=== PATIENT | female | born 1970 | race Caucasian/White ===

== ENCOUNTER 2018-10-11 15:01 | Outpatient (CLI) | payer SELFPAY ==
--- NOTE | 2018-10-11 17:11 | Vascular Lab Report ---
PROCEDURE: VL VENOUS DUPLEX LE BILAT TECHNIQUE: Duplex Doppler sonography of the BILATERAL legs. Callahan scale imaging with and without comp ression, spectral waveform analysis with and without augmentation, and color flow Doppler were employ ed. HISTORY: Bilateral lower extremity EDEMA, SWELLING, DVT COMPARISONS: None FINDINGS: RIGHT LOWER EXTREMITY: Deep Venous Thrombus: None Superficial Venous Thrombus: There is echogenic occlusive thrombus in the right proximal calf varix Venous valvular incompetence: None Soft tissue abnormality: None LEFT LOWER EXTREMITY: Deep Venous Thrombus: None Superficial Venous Thrombus: There is echogenic occlusive thrombus in the mid left thigh varix Venous valvular incompetence: None Soft tissue abnormality: None IMPRESSION: No evidence of deep venous thrombosis bilaterally. However, there are moderate occlusive thrombi with in varices involving the proximal right calf and in the mid left thigh. This document is electronically signed by Anette Beaulieu MD., October 11 2018 05:08:51 PM ET
== END 2018-10-11 15:02 | disposition home or self-care (01) ==
LOC: VAS 15:01
PROVIDERS: ATTEND Internal Medicine Cardiovascular Disease
DX: I82.4Z1 Acute embolism and thrombosis of unspecified deep veins of right distal lower extremity (principal); I82.412 Acute embolism and thrombosis of left femoral vein; I87.2 Venous insufficiency (chronic) (peripheral)
CPT/HCPCS: 93970

== ENCOUNTER 2020-11-13 19:00 | Observation (INO) | payer SELFPAY ==
[2020-11-13] MEDS ORDERED: SODIUM CHLORIDE 0.9% 500 ML 500 ML IV ONE (19:31)
[2020-11-13 20:09] LABS: Alanine Aminotransferase 11 units/L (7-56); Albumin 3.4 g/dL (3.9-5); Blood Urea Nitrogen 8 mg/dL (7-17); Calcium 8.6 mg/dL (8.4-10.2); Hemolysis Index 8
[2020-11-13 20:11] LABS: BUN/Creatinine Ratio 16
[2020-11-13 20:15] LABS: Basophils % (Auto) 0.2 % (0.0-1.8); Eosinophils # (Auto) 0.1 K/mm3 (0.0-0.4); Eosinophils % (Auto) 1.1 % (0.0-4.3); Hematocrit 34.3 % (30.3-42.9); Hemoglobin 11.8 gm/dl (10.1-14.3); Lymphocytes # (Auto) 0.8 K/mm3 (1.2-5.4); Lymphocytes % (Auto) 9.4 % (13.4-35.0); Mean Corpuscular HGB Conc 34 % (30-34); Mean Corpuscular Volume 84 fl (79-97); Monocytes # (Auto) 1.1 K/mm3 (0.0-0.8); Monocytes % (Auto) 12.9 % (0.0-7.3); Platelet Count 336 K/mm3 (140-440); Red Blood Count 4.07 M/mm3 (3.65-5.03); Red Cell Distribution Width 13.5 % (13.2-15.2)
[2020-11-13 20:23] LABS: INR 0.94 (0.87-1.13)
--- NOTE | 2020-11-13 20:26 | XRay Report ---
CHEST 2 VIEWS, 11/13/2020 7:04 PM INDICATION: Fever. COMPARISON: None FINDINGS: Support devices: None. Heart: The cardiac silhouette is normal in size. Lungs/pleura: The lungs are clear of focal airspace disease or significant pleural effusion. Additional findings: There are mild bony degenerative changes of the thoracic spine. IMPRESSION: 1. No evidence of acute cardiopulmonary process. Signer Name: Aruna Dhillon MD Signed: 11/13/2020 8:21 PM Workstation Name: [id number]
[2020-11-13 22:05] LABS: Bacteria,Urine 4+ /HPF (Negative); Bilirubin,Urine NEG (Negative); Blood,Urine SM (Negative); Calcium Oxalate Crystals,Urine 3+; Color,Urine Yellow (Yellow); Hyaline Casts,Urine 1 /LPF; Mucus,Urine 2+ /HPF; Protein,Urine <15 mg/dL mg/dL (Negative); Urobilinogen,Urine < 2.0 mg/dL (<2.0)
[2020-11-13 23:58] LABS: HCG Qualitative,Urine Negative (Negative)
[2020-11-14] MEDS ORDERED: ACETAMINOPHEN 500 MG TAB PO ONE (00:12)
[2020-11-14] MEDS ORDERED: metroNIDAZOLE 500 MG TAB PO ONE (00:12)
[2020-11-14] MEDS ORDERED: LACTATED RINGERS 2,000 ML IV ONE (00:12)
--- NOTE | 2020-11-14 00:18 | Emergency Department Report ---
ED General Adult HPI - General Chief complaint: GI Bleed Stated complaint: ABD PAINS PUI?: No Time Seen by Provider: 11/13/20 23:49 Source: patient, family, RN notes reviewed Mode of arrival: Ambulatory Limitations: Language Barrier - History of Present Illness Initial comments: Patient accompanied by daughter. Patient request that daughter translate. This provider is also conversant in Ethiopian. The patient is a 50-year-old female. She believes she has a history of inflammatory bowel disease. She believes that she had a colonoscopy and endoscopy in [place] 2 years ago. She is currently maintained on Pentasa, which she received from [place]. She presents to the ER with a few weeks of abdominal cramping, bright red blood per rectum. Denies headache, neck pain, chest pain, vomiting. Denies urinary symptoms. Denies loss of taste and smell. Has not received Covid vaccination. States she does not take blood thinning medications. Abdominal cramping is diffuse. Does not have exacerbating or relieving factors. -: Gradual, days(s) Location: abdomen Consistency: constant Improves with: none Worsens with: none - Related Data Previous Rx's Medication Instructions Recorded Last Taken Type Ciprofloxacin HCl 500 mg PO BID #14 tablet 11/14/20 Unknown Rx metroNIDAZOLE [Flagyl] 500 mg PO Q8HR #21 tablet 11/14/20 Unknown Rx predniSONE 40 mg PO . DIR #70 tab 11/14/20 Unknown Rx Allergies Allergy/AdvReac Type Severity Reaction Status Date / Time No Known Allergies Allergy Verified 11/13/20 23:50 ED Review of Systems ROS: Stated complaint: ABD PAINS Other details as noted in HPI Constitutional: fever Eyes: denies: eye discharge ENT: denies: epistaxis Respiratory: denies: cough Cardiovascular: denies: chest pain Gastrointestinal: abdominal pain, hematochezia. denies: hematemesis, melena Genitourinary: denies: dysuria Neurological: denies: weakness Hematological/Lymphatic: denies: easy bleeding ED Past Medical Hx - Past Medical History Previous Medical History?: No - Surgical History Past Surgical History?: No - Social History Smoking Status: Never Smoker Substance Use Type: None - Medications Home Medications: Home Medications Medication Instructions Recorded Confirmed Last Taken Type Ciprofloxacin HCl 500 mg PO BID #14 tablet 11/14/20 Unknown Rx metroNIDAZOLE [Flagyl] 500 mg PO Q8HR #21 tablet 11/14/20 Unknown Rx predniSONE 40 mg PO . DIR #70 tab 11/14/20 Unknown Rx ED Physical Exam - General Limitations: Language Barrier General appearance: alert, in no apparent distress - Head Head exam: Present: atraumatic, normocephalic - Eye Eye exam: Present: normal appearance, EOMI. Absent: nystagmus - ENT ENT exam: Present: normal exam, normal orophraynx, mucous membranes moist, normal external ear exam - Neck Neck exam: Present: normal inspection, full ROM. Absent: tenderness, meningismus - Respiratory Respiratory exam: Present: normal lung sounds bilaterally. Absent: respiratory distress, wheezes, rales, rhonchi, stridor, decreased breath sounds - Cardiovascular Cardiovascular Exam: Present: normal rhythm, tachycardia, normal heart sounds. Absent: bradycardia, irregular rhythm, systolic murmur, diastolic murmur, rubs, gallop - GI/Abdominal GI/Abdominal exam: Present: soft, tenderness (There is mild diffuse abdominal tenderness.). Absent: distended, guarding, rebound, rigid, pulsatile mass - Rectal Rectal exam: Present: normal inspection, normal rectal tone, heme (+) stool, bloody stool, other (Chaperoned by Jaylyn Parish) - Extremities Exam Extremities exam: Present: normal inspection, full ROM, other (2+ pulses noted in the bilateral upper and lower extremities. There is no palpable cord. negative Homans sign. Muscular compartments are soft. The pelvis is stable.). Absent: pedal edema, calf tenderness - Back Exam Back exam: Present: normal inspection. Absent: tenderness, CVA tenderness (R), CVA tenderness (L), paraspinal tenderness, vertebral tenderness - Neurological Exam Neurological exam: Present: alert, normal gait, other (No facial droop. Tongue midline. Extraocular movements intact bilaterally. Facial sensation intact to light touch in V1, V2, V3 distribution bilaterally. 5 and a 5 strength in 4 extremities. Sensation intact to light touch in 4 extremities.). Absent: motor sensory deficit - Psychiatric Psychiatric exam: Present: anxious - Skin Skin exam: Present: warm, dry, intact, normal color. Absent: rash ED Course Vital Signs 11/13/20 11/14/20 11/14/20 19:19 00:35 00:55 Temperature 102.9 F H Pulse Rate 103 H 86 84 Respiratory 18 18 19 Rate Blood Pressure 126/69 Blood Pressure 124/76 [Right] O2 Sat by Pulse 96 99 99 Oximetry 11/14/20 11/14/20 11/14/20 01:00 02:00 03:00 Temperature Pulse Rate 86 85 80 Respiratory 19 19 19 Rate Blood Pressure 124/76 116/71 Blood Pressure [Right] O2 Sat by Pulse 99 99 98 Oximetry 11/14/20 11/14/20 11/14/20 04:30 05:00 05:10 Temperature Pulse Rate 74 77 70 Respiratory 17 18 16 Rate Blood Pressure 97/59 111/65 111/65 Blood Pressure [Right] O2 Sat by Pulse 99 99 98 Oximetry 11/14/20 11/14/20 05:20 05:30 Temperature Pulse Rate 70 71 Respiratory 15 12 Rate Blood Pressure 106/64 106/64 Blood Pressure [Right] O2 Sat by Pulse 98 99 Oximetry - Reevaluation(s) Reevaluation #1: 11/14/20 00:17 Differential diagnosis, including the not limited to: Colitis, inflammatory versus infectious, urinary tract infection, bacteremia Assessment and plan: 50-year-old female with a questionable history of inflammatory bowel disease, reports work-up in [place] but not here in the [place], presenting with abdominal cramping, bloody stools, fever and ta chycardia. Meets systemic inflammatory response syndrome criteria. Denies urinary symptoms myself. Urinalysis suggestive of urinary tract infection. Place patient on IV fluids and monitor worker, treat symptoms, start Tylenol, start empiric Levaquin and Flagyl, discussed with GI, ideally would like to start steroids empirically. Obtain CT scan of the abdomen pelvis. Admit to medical service once initial diagnostics have resulted. Have discussed this plan of care with the patient. She is agreeable. Patient also gives permission for the details of her medical care to be discussed with her daughter who is currently at the bedside. Reevaluation #2: 11/14/20 01:15 Discussed patient's case with hospital physician, Dr. Castillo He requests callback once CT scan has resulted. Reevaluation #3: 11/14/20 01:43 Care will be transferred to the overnight ER physician Dr Roper to follow-up on CT scan of the abdomen pelvis, and then contact the hospitalist service to finalize admission process. - Consultations Consultation #1: 11/14/20 00:28 Discussed history, physical, laboratory studies, plan of care with GI on-call, Dr. Dino English He is in agreement with the plan of care, and is amenable to empiric steroids at this time. Patient will be admitted to the medical service once her initial diagnostics have resulted. ED Medical Decision Making - Lab Data Result diagrams: 11/13/20 19:34 11/13/20 19:34 Vital Signs 11/13/20 19:19 Temperature 102.9 F H Pulse Rate 103 H Respiratory 18 Rate Blood Pressure 126/69 O2 Sat by Pulse 96 Oximetry Lab Results 11/13/20 11/13/20 11/13/20 Range/Units 19:34 19:34 19:34 WBC 8.9 (4.5-11.0) K/mm3 RBC 4.07 (3.65-5.03) M/mm3 Hgb 11.8 (10.1-14.3) gm/dl Hct 34.3 (30.3-42.9) % MCV 84 (79-97) fl MCH 29 (28-32) pg MCHC 34 (30-34) % RDW 13.5 (13.2-15.2) % Plt Count 336 (140-440) K/mm3 Lymph % (Auto) 9.4 L (13.4-35.0) % Fountain % (Auto) 12.9 H (0.0-7.3) % Eos % (Auto) 1.1 (0.0-4.3) % Baso % (Auto) 0.2 (0.0-1.8) % Lymph # (Auto) 0.8 L (1.2-5.4) K/mm3 Fountain # (Auto) 1.1 H (0.0-0.8) K/mm3 Eos # (Auto) 0.1 (0.0-0.4) K/mm3 Baso # (Auto) 0.0 (0.0-0.1) K/mm3 Seg Neutrophils % 76.4 H (40.0-70.0) % Seg Neutrophils # 6.8 (1.8-7.7) K/mm3 PT 13.2 (12.2-14.9) Sec. INR 0.94 (0.87-1.13) VBG pH (7.320-7.420) Sodium 134 L (137-145) mmol/L Potassium 4.0 (3.6-5.0) mmol/L Chloride 101.4 (98-107) mmol/L Carbon Dioxide 21 L (22-30) mmol/L Anion Gap 16 mmol/L BUN 8 (7-17) mg/dL Creatinine 0.5 L (0.6-1.2) mg/dL Estimated GFR > 60 ml/min BUN/Creatinine Ratio 16 % Glucose 153 H (65-100) mg/dL Lactic Acid (0.7-2.0) mmol/L Calcium 8.6 (8.4-10.2) mg/dL Total Bilirubin 0.20 (0.1-1.2) mg/dL AST 17 (5-40) units/L ALT 11 (7-56) units/L Alkaline Phosphatase 75 (35-129) units/L Total Protein 7.2 (6.3-8.2) g/dL Albumin 3.4 L (3.9-5) g/dL Albumin/Globulin Ratio 0.9 % Urine Color (Yellow) Urine Turbidity (Clear) Urine pH (5.0-7.0) Ur Specific [place] (1.003-1.030) Urine Protein (Negative) mg/dL Urine Glucose (UA) (Negative) mg/dL Urine Ketones (Negative) mg/dL Urine Blood (Negative) Urine Nitrite (Negative) Urine Bilirubin (Negative) Urine Urobilinogen (<2.0) mg/dL Ur Leukocyte Esterase (Negative) Urine WBC (Auto) (0.0-6.0) /HPF Urine RBC (Auto) (0.0-6.0) /HPF U Epithel Cells (Auto) (0-13.0) /HPF Urine Bacteria (Auto) (Negative) /HPF Calcium Oxalate Crystal Hyaline Casts /LPF Urine Mucus /HPF Urine HCG, Qual (Negative) 11/13/20 11/13/20 11/13/20 Range/Units 19:34 19:34 23:49 WBC (4.5-11.0) K/mm3 RBC (3.65-5.03) M/mm3 Hgb (10.1-14.3) gm/dl Hct (30.3-42.9) % MCV (79-97) fl MCH (28-32) pg MCHC (30-34) % RDW (13.2-15.2) % Plt Count (140-440) K/mm3 Lymph % (Auto) (13.4-35.0) % Fountain % (Auto) (0.0-7.3) % Eos % (Auto) (0.0-4.3) % Baso % (Auto) (0.0-1.8) % Lymph # (Auto) (1.2-5.4) K/mm3 Fountain # (Auto) (0.0-0.8) K/mm3 Eos # (Auto) (0.0-0.4) K/mm3 Baso # (Auto) (0.0-0.1) K/mm3 Seg Neutrophils % (40.0-70.0) % Seg Neutrophils # (1.8-7.7) K/mm3 PT (12.2-14.9) Sec. INR (0.87-1.13) VBG pH 7.429 H (7.320-7.420) Sodium (137-145) mmol/L Potassium (3.6-5.0) mmol/L Chloride (98-107) mmol/L Carbon Dioxide (22-30) mmol/L Anion Gap mmol/L BUN (7-17) mg/dL Creatinine (0.6-1.2) mg/dL Estimated GFR ml/min BUN/Creatinine Ratio % Glucose (65-100) mg/dL Lactic Acid 1.30 (0.7-2.0) mmol/L Calcium (8.4-10.2) mg/dL Total Bilirubin (0.1-1.2) mg/dL AST (5-40) units/L ALT (7-56) units/L Alkaline Phosphatase (35-129) units/L Total Protein (6.3-8.2) g/dL Albumin (3.9-5) g/dL Albumin/Globulin Ratio % Urine Color (Yellow) Urine Turbidity (Clear) Urine pH (5.0-7.0) Ur Specific [place] (1.003-1.030) Urine Protein (Negative) mg/dL Urine Glucose (UA) (Negative) mg/dL Urine Ketones (Negative) mg/dL Urine Blood (Negative) Urine Nitrite (Negative) Urine Bilirubin (Negative) Urine Urobilinogen (<2.0) mg/dL Ur Leukocyte Esterase (Negative) Urine WBC (Auto) (0.0-6.0) /HPF Urine RBC (Auto) (0.0-6.0) /HPF U Epithel Cells (Auto) (0-13.0) /HPF Urine Bacteria (Auto) (Negative) /HPF Calcium Oxalate Crystal Hyaline Casts /LPF Urine Mucus /HPF Urine HCG, Qual Negative (Negative) 11/13/20 Range/Units Unknown WBC (4.5-11.0) K/mm3 RBC (3.65-5.03) M/mm3 Hgb (10.1-14.3) gm/dl Hct (30.3-42.9) % MCV (79-97) fl MCH (28-32) pg MCHC (30-34) % RDW (13.2-15.2) % Plt Count (140-440) K/mm3 Lymph % (Auto) (13.4-35.0) % Fountain % (Auto) (0.0-7.3) % Eos % (Auto) (0.0-4.3) % Baso % (Auto) (0.0-1.8) % Lymph # (Auto) (1.2-5.4) K/mm3 Fountain # (Auto) (0.0-0.8) K/mm3 Eos # (Auto) (0.0-0.4) K/mm3 Baso # (Auto) (0.0-0.1) K/mm3 Seg Neutrophils % (40.0-70.0) % Seg Neutrophils # (1.8-7.7) K/mm3 PT (12.2-14.9) Sec. INR (0.87-1.13) VBG pH (7.320-7.420) Sodium (137-145) mmol/L Potassium (3.6-5.0) mmol/L Chloride (98-107) mmol/L Carbon Dioxide (22-30) mmol/L Anion Gap mmol/L BUN (7-17) mg/dL Creatinine (0.6-1.2) mg/dL Estimated GFR ml/min BUN/Creatinine Ratio % Glucose (65-100) mg/dL Lactic Acid (0.7-2.0) mmol/L Calcium (8.4-10.2) mg/dL Total Bilirubin (0.1-1.2) mg/dL AST (5-40) units/L ALT (7-56) units/L Alkaline Phosphatase (35-129) units/L Total Protein (6.3-8.2) g/dL Albumin (3.9-5) g/dL Albumin/Globulin Ratio % Urine Color Yellow (Yellow) Urine Turbidity Slightly-cloudy (Clear) Urine pH 5.0 (5.0-7.0) Ur Specific [place] 1.020 (1.003-1.030) Urine Protein <15 mg/dl (Negative) mg/dL Urine Glucose (UA) Neg (Negative) mg/dL Urine Ketones Neg (Negative) mg/dL Urine Blood Sm (Negative) Urine Nitrite Neg (Negative) Urine Bilirubin Neg (Negative) Urine Urobilinogen < 2.0 (<2.0) mg/dL Ur Leukocyte Esterase Tr (Negative) Urine WBC (Auto) 13.0 H (0.0-6.0) /HPF Urine RBC (Auto) 6.0 (0.0-6.0) /HPF U Epithel Cells (Auto) 11.0 (0-13.0) /HPF Urine Bacteria (Auto) 4+ (Negative) /HPF Calcium Oxalate Crystal 3+ Hyaline Casts 1 /LPF Urine Mucus 2+ /HPF Urine HCG, Qual (Negative) - Radiology Data Radiology results: pending Critical care attestation.: If time is entered above; I have spent that time in minutes in the direct care of this critically ill patient, excluding procedure time. ED Disposition Clinical Impression: SIRS (systemic inflammatory response syndrome), Bloody stool, Acute abdominal pain, History of inflammatory bowel disease, Urinary tract infection Disposition: OP ADMIT IP TO THIS HOSP Is pt being admited?: Yes Does the pt Need Aspirin: No Condition: Good
[2020-11-14] MEDS ORDERED: methylPREDNISolone Sod Succinate 125 MG/2 ML INJ IV ONE (00:27)
--- NOTE | 2020-11-14 02:58 | Cat Scan Report ---
CT abdomen pelvis w con INDICATION: R.L.Q. abdominal pain, Hx of IBD. COMPARISON: None TECHNIQUE: Abdominal and pelvic CT exam performed. All CT scans at this location are performed using CT dose reduction for ALARA by means of automated exposure control. FINDINGS: CT ABDOMEN and PELVIS: Lung Bases: No significant abnormality. Liver: No significant abnormality. Biliary: No significant abnormality. Spleen: No significant abnormality. Pancreas: No significant abnormality. Adrenals: No significant abnormality. Kidneys: No significant abnormality. Lymphatics: No lymphadenopathy. Vasculature: No significant abnormality. Bowel: Moderately discontinuous bowel wall thickening involving the rectum and sigmoid colon. Normal appendix. Pelvis: No significant abnormality. Osseous Structures: No aggressive osseous lesion. Mild sclerosis of the iliac endplates of the sacroi liac joints. Additional Findings: None IMPRESSION: 1. Findings consistent with colitis involving the rectum and sigmoid:. Given the imaging features, un derlying inflammatory bowel disease such as ulcerative colitis is a consideration. Signer Name: Kadeem Wright MD Signed: 11/14/2020 2:53 AM Workstation Name: [id number]
[2020-11-14] MEDS ORDERED: NALOXONE 0.4 MG/1 ML INJ IV PRN (03:12)
[2020-11-14] MEDS ORDERED: ONDANSETRON 4 MG/2 ML INJ IV PRN (03:12)
[2020-11-14] MEDS ORDERED: ALBUTEROL 2.5 MG/3 ML NEBU IH PRN (03:12)
[2020-11-14] MEDS ORDERED: HYDROmorphone 1 MG/1 ML INJ IV PRN (03:12)
[2020-11-14] MEDS ORDERED: ACETAMINOPHEN 325 MG TAB PO PRN (03:12)
[2020-11-14] MEDS ORDERED: MORPHINE 2 MG/1 ML INJ IV PRN (03:12)
--- NOTE | 2020-11-14 03:46 | History and Physical Report ---
History of Present Illness Date of examination: 11/14/20 Date of admission: 11/14/2020 Chief complaint: Abdominal cramping, bright red blood per rectum History of present illness: 50-year-old female with history of inflammatory bowel disease who presents to [facility] ED with complaints of abdominal cramping, and bright red blood per rectum. Patient speaks limited Israeli, her daughter is present at bedside and assisted with providing history. Patient states she has been experiencing intermittent abdominal cramping x1 month, which has worsened and is now constant. She rates her pain 10 out of 10, and is relieved with pain medicine. Endorses loose stools mixed with blood, fever, abdominal bloating. Patient believes she was diagnosed with inflammatory bowel disease approximately 2 years ago in [place] after undergoing EGD and colonoscopy. She is currently maintained on Pentasa, which she receives from [place]. Denies palpitation, headache, chest pain, shortness of breath, constipation, cough, loss of smell, loss of taste, generalized weakness, recent sick contacts Past History Past Medical History: other (Colitis,) Past Surgical History: Other (Colonoscopy, endoscopy (2 years ago in [place])) Social history: , lives with family, full code. denies: smoking, alcohol abuse, prescription drug abuse, IV drug use Family history: diabetes Medications and Allergies Allergies Allergy/AdvReac Type Severity Reaction Status Date / Time No Known Allergies Allergy Verified 11/13/20 23:50 Active Meds: Active Medications Acetaminophen (Acetaminophen 325 Mg Tab) 650 mg PO Q4H PRN PRN Reason: Pain MILD(1-3)/Fever >100.5/NORRIS Albuterol (Albuterol 2.5 Mg/3 Ml Nebu) 2.5 mg IH Q3HRT PRN PRN Reason: Shortness Of Breath Hydromorphone HCl (Hydromorphone 1 Mg/1 Ml Inj) 0.5 mg IV Q3H PRN PRN Reason: Pain , Severe (7-10) Levofloxacin/Dextrose (Levaquin 500mg/100ml) 500 mg in 100 mls @ 100 mls/hr IV Q24H SAM; Protocol Metronidazole (Flagyl 500 Mg/100 Ml) 500 mg in 100 mls @ 100 mls/hr IV Q8H SAM; Protocol Dextrose/Sodium Chloride (D5/0.45ns) 1,000 mls @ 75 mls/hr IV DIRECT SAM Morphine Sulfate (Morphine 2 Mg/1 Ml Inj) 2 mg IV Q4H PRN PRN Reason: Pain, Moderate (4-6) Naloxone HCl (Naloxone 0.4 Mg/1 Ml Inj) 0.1 mg IV Q2MIN PRN PRN Reason: Res Rate </= 8 or 02 SAT < 92% Ondansetron HCl (Ondansetron 4 Mg/2 Ml Inj) 4 mg IV Q6H PRN PRN Reason: Nausea And Vomiting Pantoprazole Sodium (Pantoprazole 40 Mg Inj) 40 mg IV BID SAM Sodium Chloride (Sodium Chloride 0.9% 10 Ml Flush Syringe) 10 ml IV BID SAM Sodium Chloride (Sodium Chloride 0.9% 10 Ml Flush Syringe) 10 ml IV PRN PRN PRN Reason: LINE FLUSH Review of Systems All systems: negative (As noted in HPI) Exam - Physical Exam Narrative exam: Physical exam General appearance: Present: No acute distress, alert and oriented 3, adult female - EENT Eyes: Present: PERRL, EOM intact ENT: hearing intact, normal dentition - Neck Neck: Present: supple, normal ROM - Respiratory Respiratory effort: Non-labored Respiratory: Clear throughout - Cardiovascular Heart rate: 90 (bpm) Rhythm: Sinus Heart Sounds: Present: S1 & S2. Absent: rub, click - Extremities Extremities: no ischemia, pulses intact, - Peripheral Assessment Peripheral Pulses: within normal limits - Abdominal General gastrointestinal: soft, generalized tenderness, distended , active bowel sounds - Integumentary Integumentary: Present: warm, dry - Musculoskeletal Musculoskeletal: Able to move all extremities -Neurological Neurological: CN II-XII intact - Psychiatric Psychiatric: cooperative - Constitutional Vitals: Temp Pulse Resp BP Pulse Ox 102.9 F H 84 19 124/76 99 11/13/20 19:19 11/14/20 00:55 11/14/20 00:55 11/14/20 00:55 11/14/20 00:55 HEART Score - HEART Score Troponin: WBC 8.9 K/mm3 (4.5-11.0) 11/13/20 19:34 RBC 4.07 M/mm3 (3.65-5.03) 11/13/20 19:34 Hgb 11.8 gm/dl (10.1-14.3) 11/13/20 19:34 Hct 34.3 % (30.3-42.9) 11/13/20 19:34 MCV 84 fl (79-97) 11/13/20 19:34 MCH 29 pg (28-32) 11/13/20 19:34 MCHC 34 % (30-34) 11/13/20 19:34 RDW 13.5 % (13.2-15.2) 11/13/20 19:34 Plt Count 336 K/mm3 (140-440) 11/13/20 19:34 Lymph % (Auto) 9.4 % (13.4-35.0) L 11/13/20 19:34 [place] % (Auto) 12.9 % (0.0-7.3) H 11/13/20 19:34 Eos % (Auto) 1.1 % (0.0-4.3) 11/13/20 19:34 Baso % (Auto) 0.2 % (0.0-1.8) 11/13/20 19:34 Lymph # (Auto) 0.8 K/mm3 (1.2-5.4) L 11/13/20 19:34 [place] # (Auto) 1.1 K/mm3 (0.0-0.8) H 11/13/20 19:34 Eos # (Auto) 0.1 K/mm3 (0.0-0.4) 11/13/20 19:34 Baso # (Auto) 0.0 K/mm3 (0.0-0.1) 11/13/20 19:34 Seg Neutrophils % 76.4 % (40.0-70.0) H 11/13/20 19:34 Seg Neutrophils # 6.8 K/mm3 (1.8-7.7) 11/13/20 19:34 PT 13.2 Sec. (12.2-14.9) 11/13/20 19:34 INR 0.94 (0.87-1.13) 11/13/20 19:34 VBG pH 7.429 (7.320-7.420) H 11/13/20 19:34 Sodium 134 mmol/L (137-145) L 11/13/20 19:34 Potassium 4.0 mmol/L (3.6-5.0) 11/13/20 19:34 Chloride 101.4 mmol/L (98-107) 11/13/20 19:34 Carbon Dioxide 21 mmol/L (22-30) L 11/13/20 19:34 Anion Gap 16 mmol/L 11/13/20 19:34 BUN 8 mg/dL (7-17) 11/13/20 19:34 Creatinine 0.5 mg/dL (0.6-1.2) L 11/13/20 19:34 Estimated GFR > 60 ml/min 11/13/20 19:34 BUN/Creatinine Ratio 16 % 11/13/20 19:34 Glucose 153 mg/dL (65-100) H 11/13/20 19:34 Lactic Acid 1.00 mmol/L (0.7-2.0) 11/14/20 00:42 Calcium 8.6 mg/dL (8.4-10.2) 11/13/20 19:34 Total Bilirubin 0.20 mg/dL (0.1-1.2) 11/13/20 19:34 AST 17 units/L (5-40) 11/13/20 19:34 ALT 11 units/L (7-56) 11/13/20 19:34 Alkaline Phosphatase 75 units/L (35-129) 11/13/20 19:34 Total Protein 7.2 g/dL (6.3-8.2) 11/13/20 19:34 Albumin 3.4 g/dL (3.9-5) L 11/13/20 19:34 Albumin/Globulin Ratio 0.9 % 11/13/20 19:34 Urine Color Yellow (Yellow) 11/13/20 Unknown Urine Turbidity Slightly-cloudy (Clear) 11/13/20 Unknown Urine pH 5.0 (5.0-7.0) 11/13/20 Unknown Ur Specific [place] 1.020 (1.003-1.030) 11/13/20 Unknown Urine Protein <15 mg/dl mg/dL (Negative) 11/13/20 Unknown Urine Glucose (UA) Neg mg/dL (Negative) 11/13/20 Unknown Urine Ketones Neg mg/dL (Negative) 11/13/20 Unknown Urine Blood Sm (Negative) 11/13/20 Unknown Urine Nitrite Neg (Negative) 11/13/20 Unknown Urine Bilirubin Neg (Negative) 11/13/20 Unknown Urine Urobilinogen < 2.0 mg/dL (<2.0) 11/13/20 Unknown Ur Leukocyte Esterase Tr (Negative) 11/13/20 Unknown Urine WBC (Auto) 13.0 /HPF (0.0-6.0) H 11/13/20 Unknown Urine RBC (Auto) 6.0 /HPF (0.0-6.0) 11/13/20 Unknown U Epithel Cells (Auto) 11.0 /HPF (0-13.0) 11/13/20 Unknown Urine Bacteria (Auto) 4+ /HPF (Negative) 11/13/20 Unknown Calcium Oxalate Crystal 3+ 11/13/20 Unknown Hyaline Casts 1 /LPF 11/13/20 Unknown Urine Mucus 2+ /HPF 11/13/20 Unknown Urine HCG, Qual Negative (Negative) 11/13/20 23:49 Results - Labs CBC & Chem 7: 11/13/20 19:34 11/13/20 19:34 Labs: Laboratory Last Values WBC 8.9 K/mm3 (4.5-11.0) 11/13/20 19:34 RBC 4.07 M/mm3 (3.65-5.03) 11/13/20 19:34 Hgb 11.8 gm/dl (10.1-14.3) 11/13/20 19:34 Hct 34.3 % (30.3-42.9) 11/13/20 19:34 MCV 84 fl (79-97) 11/13/20 19:34 MCH 29 pg (28-32) 11/13/20 19:34 MCHC 34 % (30-34) 11/13/20 19:34 RDW 13.5 % (13.2-15.2) 11/13/20 19:34 Plt Count 336 K/mm3 (140-440) 11/13/20 19:34 Lymph % (Auto) 9.4 % (13.4-35.0) L 11/13/20 19:34 Slope % (Auto) 12.9 % (0.0-7.3) H 11/13/20 19:34 Eos % (Auto) 1.1 % (0.0-4.3) 11/13/20 19:34 Baso % (Auto) 0.2 % (0.0-1.8) 11/13/20 19:34 Lymph # (Auto) 0.8 K/mm3 (1.2-5.4) L 11/13/20 19:34 [place] # (Auto) 1.1 K/mm3 (0.0-0.8) H 11/13/20 19:34 Eos # (Auto) 0.1 K/mm3 (0.0-0.4) 11/13/20 19:34 Baso # (Auto) 0.0 K/mm3 (0.0-0.1) 11/13/20 19:34 Seg Neutrophils % 76.4 % (40.0-70.0) H 11/13/20 19:34 Seg Neutrophils # 6.8 K/mm3 (1.8-7.7) 11/13/20 19:34 PT 13.2 Sec. (12.2-14.9) 11/13/20 19:34 INR 0.94 (0.87-1.13) 11/13/20 19:34 VBG pH 7.429 (7.320-7.420) H 11/13/20 19:34 Sodium 134 mmol/L (137-145) L 11/13/20 19:34 Potassium 4.0 mmol/L (3.6-5.0) 11/13/20 19:34 Chloride 101.4 mmol/L (98-107) 11/13/20 19:34 Carbon Dioxide 21 mmol/L (22-30) L 11/13/20 19:34 Anion Gap 16 mmol/L 11/13/20 19:34 BUN 8 mg/dL (7-17) 11/13/20 19:34 Creatinine 0.5 mg/dL (0.6-1.2) L 11/13/20 19:34 Estimated GFR > 60 ml/min 11/13/20 19:34 BUN/Creatinine Ratio 16 % 11/13/20 19:34 Glucose 153 mg/dL (65-100) H 11/13/20 19:34 Lactic Acid 1.00 mmol/L (0.7-2.0) 11/14/20 00:42 Calcium 8.6 mg/dL (8.4-10.2) 11/13/20 19:34 Total Bilirubin 0.20 mg/dL (0.1-1.2) 11/13/20 19:34 AST 17 units/L (5-40) 11/13/20 19:34 ALT 11 units/L (7-56) 11/13/20 19:34 Alkaline Phosphatase 75 units/L (35-129) 11/13/20 19:34 Total Protein 7.2 g/dL (6.3-8.2) 11/13/20 19:34 Albumin 3.4 g/dL (3.9-5) L 11/13/20 19:34 Albumin/Globulin Ratio 0.9 % 11/13/20 19:34 Urine Color Yellow (Yellow) 11/13/20 Unknown Urine Turbidity Slightly-cloudy (Clear) 11/13/20 Unknown Urine pH 5.0 (5.0-7.0) 11/13/20 Unknown Ur Specific [place] 1.020 (1.003-1.030) 11/13/20 Unknown Urine Protein <15 mg/dl mg/dL (Negative) 11/13/20 Unknown Urine Glucose (UA) Neg mg/dL (Negative) 11/13/20 Unknown Urine Ketones Neg mg/dL (Negative) 11/13/20 Unknown Urine Blood Sm (Negative) 11/13/20 Unknown Urine Nitrite Neg (Negative) 11/13/20 Unknown Urine Bilirubin Neg (Negative) 11/13/20 Unknown Urine Urobilinogen < 2.0 mg/dL (<2.0) 11/13/20 Unknown Ur Leukocyte Esterase Tr (Negative) 11/13/20 Unknown Urine WBC (Auto) 13.0 /HPF (0.0-6.0) H 11/13/20 Unknown Urine RBC (Auto) 6.0 /HPF (0.0-6.0) 11/13/20 Unknown U Epithel Cells (Auto) 11.0 /HPF (0-13.0) 11/13/20 Unknown Urine Bacteria (Auto) 4+ /HPF (Negative) 11/13/20 Unknown Calcium Oxalate Crystal 3+ 11/13/20 Unknown Hyaline Casts 1 /LPF 11/13/20 Unknown Urine Mucus 2+ /HPF 11/13/20 Unknown Urine HCG, Qual Negative (Negative) 11/13/20 23:49 Microbiology: Microbiology 11/13/20 19:47 Peripheral/Venous Blood Culture - Preliminary Culture in Progress 11/13/20 19:34 Peripheral/Venous Blood Culture - Preliminary Culture in Progress - Imaging and Cardiology Imaging and Cardiology: CXR: FINDINGS: Support devices: None. Heart: The cardiac silhouette is normal in size. Lungs/pleura: The lungs are clear of focal airspace disease or significant pleural effusion. Additional findings: There are mild bony degenerative changes of the thoracic spine. IMPRESSION: 1. No evidence of acute cardiopulmonary process. CT Abdomen/Pelvis: FINDINGS: CT ABDOMEN and PELVIS: Lung Bases: No significant abnormality. Liver: No significant abnormality. Biliary: No significant abnormality. Spleen: No significant abnormality. Pancreas: No significant abnormality. Adrenals: No significant abnormality. Kidneys: No significant abnormality. Lymphatics: No lymphadenopathy. Vasculature: No significant abnormality. Bowel: Moderately discontinuous bowel wall thickening involving the rectum and sigmoid colon. Normal appendix. Pelvis: No significant abnormality. Osseous Structures: No aggressive osseous lesion. Mild sclerosis of the iliac endplates of the sacroiliac joints. Additional Findings: None IMPRESSION: 1. Findings consistent with colitis involving the rectum and sigmoid:. Given the imaging features, underlying inflammatory bowel disease such as ulcerative colitis is a consideration. Assessment and Plan Assessment and plan: Ulcerative colitis -CT abdomen pelvis shows findings consistent with colitis involving the rectum and sigmoid -History of inflammatory bowel disease, diagnosed 2 years ago in [place] status post EGD and colonoscopy -Currently on Pentasa (gets med from [place]) -On IV systemic steroids -On empiric IV ABX -On Protonix -Cultures pending -N.p.o. for now -GI consulted with plans to see patient in a.m. Acute abdominal pain -Secondary to #1 -Pain management, supportive care Urinary tract infection -UA positive for UTI -urine wbc 13.0 -Urine culture pending -on IV Abx Advance Directives: No VTE prophylaxis?: Mechanical Reason for no VTE Prophylaxis: Bleeding Plan of care discussed with patient/family: Yes
[2020-11-14] MEDS ORDERED: D5W/0.45% NACL 1,000 ML IV SCH (04:00)
[2020-11-14] MEDS ORDERED: methylPREDNISolone Sod Succinate 40 MG/1 ML INJ IV SCH (06:00)
[2020-11-14] MEDS ORDERED: metroNIDAZOLE/NS 500 MG/100 ML 500 MG/100 ML BAG IV SCH (08:00)
[2020-11-14] MEDS ORDERED: PANTOPRAZOLE 40 MG INJ IV SCH (08:00)
[2020-11-14 12:01] VITALS: BP 104/68
--- NOTE | 2020-11-14 13:18 | Consultation ---
History of Present Illness - Reason for Consult Consult date: 11/14/20 Colitis Requesting physician: MIRIAN FERNÁNDEZ - History of Present Illness Ms. Ortiz Verma is a 50-year-old American woman on whom I am consulted for colitis. She has a history of ulcerative colitis diagnosed 2 years ago in [place] after upper endoscopy and colonoscopy there. She has been on Pentasa according to her and her daughter. She was doing well with bowel movements approximately once or twice a day until approximately a month ago. She initially developed up to 3 loose bowel movements a day. On November 08, her symptoms worsened and she was having up to 4 loose bowel movements a day with b lood mixed in. She was having lower abdominal cramping discomfort as well. She denies recent antibiotics. There have been no fevers chills or sweats. There was no nausea or vomiting. Currently, patient feels well and states bowel movements have improved. Her pain is resolved. History was obtained from the daughter as the synthetic plasterer. Medications reviewed. Past History Past Medical History: other (Colitis,) Past Surgical History: Other (Colonoscopy, endoscopy (2 years ago in [place])) Social history: , lives with family, full code. denies: smoking, alcohol abuse, prescription drug abuse, IV drug use Family history: diabetes Medications and Allergies Allergies Allergy/AdvReac Type Severity Reaction Status Date / Time No Known Allergies Allergy Verified 11/13/20 23:50 Home Medications Medication Instructions Recorded Confirmed Last Taken Type No Known Home Medications [No 11/14/20 11/14/20 Unknown History Reported Home Medications] Active Meds: Active Medications Acetaminophen (Acetaminophen 325 Mg Tab) 650 mg PO Q4H PRN PRN Reason: Pain MILD(1-3)/Fever >100.5/NORRIS Albuterol (Albuterol 2.5 Mg/3 Ml Nebu) 2.5 mg IH Q3HRT PRN PRN Reason: Shortness Of Breath Hydromorphone HCl (Hydromorphone 1 Mg/1 Ml Inj) 0.5 mg IV Q3H PRN PRN Reason: Pain , Severe (7-10) Levofloxacin/Dextrose (Levaquin 500mg/100ml) 500 mg in 100 mls @ 100 mls/hr IV Q24H SAM; Protocol Metronidazole (Flagyl 500 Mg/100 Ml) 500 mg in 100 mls @ 100 mls/hr IV Q8H SAM; Protocol Last Admin: 11/14/20 08:47 Dose: 100 mls/hr Documented by: Dextrose/Sodium Chloride (D5/0.45ns) 1,000 mls @ 75 mls/hr IV DIRECT [facility] Last Admin: 11/14/20 06:29 Dose: 75 mls/hr Documented by: Methylprednisolone Sodium Succinate (Methylprednisolone Sod Succinate 40 Mg/1 Ml Inj) 20 mg IV Q8HR [facility] Last Admin: 11/14/20 06:29 Dose: 20 mg Documented by: Morphine Sulfate (Morphine 2 Mg/1 Ml Inj) 2 mg IV Q4H PRN PRN Reason: Pain, Moderate (4-6) Naloxone HCl (Naloxone 0.4 Mg/1 Ml Inj) 0.1 mg IV Q2MIN PRN PRN Reason: Res Rate </= 8 or 02 SAT < 92% Ondansetron HCl (Ondansetron 4 Mg/2 Ml Inj) 4 mg IV Q6H PRN PRN Reason: Nausea And Vomiting Pantoprazole Sodium (Pantoprazole 40 Mg Inj) 40 mg IV BID [facility] Last Admin: 11/14/20 08:47 Dose: 40 mg Documented by: Sodium Chloride (Sodium Chloride 0.9% 10 Ml Flush Syringe) 10 ml IV BID [facility] Last Admin: 11/14/20 08:47 Dose: 10 ml Documented by: Sodium Chloride (Sodium Chloride 0.9% 10 Ml Flush Syringe) 10 ml IV PRN PRN PRN Reason: LINE FLUSH Review of Systems All systems: negative (as per HPI) Exam - Constitutional Vitals: Temp Pulse Resp BP Pulse Ox 98 F 72 18 104/68 98 11/14/20 12:00 11/14/20 12:00 11/14/20 12:00 11/14/20 12:00 11/14/20 12:00 General appearance: Present: no acute distress, other (Smiling, in bed) - EENT Eyes: Present: PERRL, EOM intact ENT: hearing intact - Respiratory Respiratory effort: normal Respiratory: bilateral: CTA - Cardiovascular Rhythm: regular Heart Sounds: Present: S1 & S2 - Extremities Extremities: No edema - Abdominal General gastrointestinal: Present: soft, tender (Mild, LLQ) Results - Labs CBC & Chem 7: 11/13/20 19:34 11/13/20 19:34 Labs: Abnormal lab results 11/13/20 11/13/20 11/13/20 Range/Units 19:34 19:34 19:34 Lymph % (Auto) 9.4 L (13.4-35.0) % [place] % (Auto) 12.9 H (0.0-7.3) % Lymph # (Auto) 0.8 L (1.2-5.4) K/mm3 [place] # (Auto) 1.1 H (0.0-0.8) K/mm3 Seg Neutrophils % 76.4 H (40.0-70.0) % VBG pH 7.429 H (7.320-7.420) Sodium 134 L (137-145) mmol/L Carbon Dioxide 21 L (22-30) mmol/L Creatinine 0.5 L (0.6-1.2) mg/dL Glucose 153 H (65-100) mg/dL Albumin 3.4 L (3.9-5) g/dL Urine WBC (Auto) (0.0-6.0) /HPF 11/13/20 Range/Units Unknown Lymph % (Auto) (13.4-35.0) % [place] % (Auto) (0.0-7.3) % Lymph # (Auto) (1.2-5.4) K/mm3 [place] # (Auto) (0.0-0.8) K/mm3 Seg Neutrophils % (40.0-70.0) % VBG pH (7.320-7.420) Sodium (137-145) mmol/L Carbon Dioxide (22-30) mmol/L Creatinine (0.6-1.2) mg/dL Glucose (65-100) mg/dL Albumin (3.9-5) g/dL Urine WBC (Auto) 13.0 H (0.0-6.0) /HPF - Imaging and Cardiology CT scan - abdomen: report reviewed (Rectosigmoid colitis) Assessment and Plan 1. Rectosigmoid colitis -consistent with patient's known history of ulcerative colitis. This may well be a flare since it has been going on for a month. It is unclear to me what form of Pentasa she is taking as patient gets it from [place]. Her lab work is otherwise unremarkable. Patient currently is doing well. -Advance diet as tolerated -Would discharge to home when feeling well, on oral prednisone taper starting at 40 mg/day and decreasing by 10 mg/week. I would also discharged to home on oral ciprofloxacin and metronidazole for 10 days. -Patient may well have an infectious component to her diarrhea and checking for C. difficile would be appropriate. -Then, as an outpatient, her records would need to be reviewed and chronic management established in this country.
--- NOTE | 2020-11-14 13:35 | Discharge Summary ---
Providers - Providers Date of Admission: 11/14/20 03:13 Attending physician: MIRIAN FERNÁNDEZ MD 11/14/20 00:12 Consult to Physician [CONS] Urgent Comment: Dr. Wood spoke with Dr. Gutierrez @ 0026 Consulting Provider: AUGUST MAHER Physician Instructions: Reason For Exam: gi bleed, sepsis ? [facility] vs [facility] Primary care physician: ENGINEER INTERN Hospitalization Reason for admission: abdominal pain Condition: Good Hospital course: 50-year-old female with history of inflammatory bowel disease who presents to [facility] ED with complaints of abdominal cramping, and bright red blood per rectum. Patient speaks limited [place], her daughter is present at bedside and assisted with providing history. Patient states she has been experiencing intermittent abdominal cramping x1 month, which has worsened and is now constant. She rates her pain 10 out of 10, and is relieved with pain medicine. Endorses loose stools mixed with blood, fever, abdominal bloating. Patient believes she was diagnosed with inflammatory bowel disease approximately 2 years ago in [place] after undergoing EGD and colonoscopy. She is currently maintained on Pentasa, which she receives from [place]. Denies palpitation, headache, chest pain, shortness of breath, constipation, cough, loss of smell, loss of taste, generalized weakness, recent sick contacts Patient seen and examined this time reports improvement in symptoms, Discussed with GI doctor who recommends antibiotics and steroids. Patient states that she is shortness of improvement very little pain. She is clinically stable for discharge with the GI doctor is okay with that. She can follow-up outpatient Plan was discussed with the daughter in detail. Recommendation by the ID clear diagnosis is noted below. 1. Rectosigmoid colitis -consistent with patient's known history of ulcerative colitis. This may well be a flare since it has been going on for a month. It is unclear to me what form of Pentasa she is taking as patient gets it from [place]. Her lab work is otherwise unremarkable. Patient currently is doing well. -Advance diet as tolerated -Would discharge to home when feeling well, on oral prednisone taper starting at 40 mg/day and decreasing by 10 mg/week. I would also discharged to home on oral ciprofloxacin and metronidazole for 10 days. -Patient may well have an infectious component to her diarrhea and checking for C. difficile would be appropriate. -Then, as an outpatient, her records would need to be reviewed and chronic management established in this country. Disposition: DC-01 TO HOME OR SELFCARE Final Discharge Diagnosis (Prints w/discharge instructions): ulcerative colitis Time spent for discharge: 35 mins Core Measure Documentation - Palliative Care Palliative Care/ Comfort Measures: Not Applicable - Core Measures Any of the following diagnoses?: none Exam - Physical Exam Narrative exam: VITAL SIGNS: Reviewed. GENERAL: The patient appears normally developed, Vital signs as documented. HEAD: No signs of head trauma. EYES: Pupils are equal. Extraocular motions intact. EARS: Hearing grossly intact. MOUTH: Oropharynx is normal. NECK: No adenopathy, no JVD. CHEST: Chest with clear breath sounds bilaterally. No wheezes, rales, or rhonchi. CARDIAC: Regular rate and rhythm. S1 and S2, without murmurs, gallops, or rubs. VASCULAR: No Edema. Peripheral pulses normal and equal in all extremities. ABDOMEN: Soft, mildly tender and non distended. No rebound or guarding, and no masses palpated. Bowel Sounds normal. MUSCULOSKELETAL: Good range of motion of all major joints. Extremities without clubbing, cyanosis or edema. NEUROLOGIC EXAM: Alert and oriented x 3 No focal sensory or strength deficits. Speech normal. Follows commands. PSYCHIATRIC: Mood normal. SKIN: detail exam as documented in skin assessment - Constitutional Vitals: Temp Pulse Resp BP Pulse Ox 98 F 72 18 104/68 98 11/14/20 12:00 11/14/20 12:00 11/14/20 12:00 11/14/20 12:00 11/14/20 12:00 Plan Activity: advance as tolerated, fall precautions Diet: low fat, advance as tolerated Special Instructions: record daily weights, record daily BP diary Follow up with: TASH WILKINSON MD [Primary Care Provider] - 7 Days FANNIE GUTIERREZ MD [Staff Physician] - 7 Days Forms: Accompanied Note Prescriptions: Ciprofloxacin HCl 500 mg PO BID #14 tablet metroNIDAZOLE [Flagyl] 500 mg PO Q8HR #21 tablet predniSONE 40 mg PO . DIR #70 tab
--- NOTE | 2020-11-15 10:31 | Electrocardiograph Report ---
[facility] Test Date: 2020-11-14 Test Time: 00:53:31 Pat Name: MARILYN HER Department: Room: [facility] 1 Gender: F Registered Public Health Nurse: KAYLIN : 1970 Requested By: JONATHAN MOELLER Order Number: [id number] Reading MD: Sherron Messer Measurements Intervals [place] Rate: 90 P: 45 AR: 112 QRS: 22 QRSD: 78 T: 45 QT: 390 QTc: 477 Interpretive Statements Sinus rhythm No previous ECG available for comparison Electronically Signed On 11-15-2020 10:30:58 EDT by Sherron Messer
== END 2020-11-14 15:30 | disposition home or self-care (01) ==
LOC: ED 19:00 → 3B 11-14 03:13 → INTOOBSV 11-14 03:13
PROVIDERS: ADMIT Internal Medicine Geriatric Medicine; ATTEND Internal Medicine
DX: K51.90 Ulcerative colitis, unspecified, without complications (principal); R65.10 Systemic inflammatory response syndrome (SIRS) of non-infectious origin without acute organ dysfunction; N39.0 Urinary tract infection, site not specified; K52.9 Noninfective gastroenteritis and colitis, unspecified; K52.89 Other specified noninfective gastroenteritis and colitis
CPT/HCPCS: 36415; 71046; 74177; 80053; 81001; 81025; 82140; 82805; 85025; 85610; 87040; 87086; 93005; 96361; 96365; 96367; 96375; 96376; 99285; C9113; G0378; J1956; J2920; J2930; J7120; Q9967